=== PATIENT | female | born 1985 | race African-American/Black ===

== ENCOUNTER 2020-10-25 08:55 | Emergency (ER) | payer OTHER ==
[2020-10-25 09:01] VITALS: BP 105/74; PULSE 63; TEMP 98.2; BMI 28.1
== END 2020-10-25 10:40 | disposition home or self-care (01) ==
LOC: JERFT 08:55
DX: S62.660A Nondisplaced fracture of distal phalanx of right index finger, initial encounter for closed fracture (principal); S67.21XA Crushing injury of right hand, initial encounter
CPT/HCPCS: 73140-TC-RT-FY; 99282-25

== ENCOUNTER 2021-08-01 16:01 | Emergency (ER) | payer BC, OTHER ==
[2021-08-01 17:02] VITALS: BP 91/48; PULSE 104; TEMP 98; BMI 27.2
[2021-08-04 21:09] LABS: SARS-CoV-2 NAA Detected (Not Detected)
== END 2021-08-01 18:00 | disposition home or self-care (01) ==
LOC: JER 16:01
DX: B34.9 Viral infection, unspecified (principal)
CPT/HCPCS: 87804; 99283-25; C9803; U0003; U0005